=== PATIENT | male | born 1965 | race African-American/Black ===

== ENCOUNTER 2016-11-11 22:40 | Emergency (ER) | payer MEDICAID ==
[~2016-11-11] VITALS: Ht 182.9 cm; Wt 127.0 kg
[~2016-11-11 22:40] MED LIST: ARIP10TA14 PO; ASPI-785 PO; ATEN-176 PO; BENA40TA3 PO; CLON2TAB PO; HYDR-519 PO; METF-246 PO; OMEP20CA10 PO
[2016-11-11] MEDS ORDERED: ASPIRIN 81MG TABLET PO STA (23:46)
[2016-11-11] MEDS ORDERED: MORPHINE SULFATE 4 MG/ML CPJ (NOT FOR IM USE) IV STA (23:46)
[2016-11-12 00:07] LABS: BASOPHILS % 1.2 % (0.0-2.0); EOSINOPHILS % 6.8 % (0.0-5.0); HEMATOCRIT. 39.1 % (42.0-52.0); LYMPHOCYTES % 41.7 % (20.0-50.0); MEAN CORPUSCULAR HEMOGLOBIN 27.7 pg (28.0-32.0); MEAN CORPUSCULAR HGB CONC 33.2 g/dL (31.0-37.0); MEAN CORPUSCULAR VOLUME 83.3 fL (80.0-94.0); MEAN PLATELET VOLUME 7.6 fl (7.4-10.4); MONOCYTES % 8.9 % (2.0-8.0); NEUTROPHILS % 41.4 % (40.0-76.0); PLATELET 348 x1000/uL (130-400); RED CELL DISTRIBUTION WIDTH 15.4 % (11.6-14.6); WHITE BLOOD COUNT 6.2 x1000/uL (4.5-11.0)
[2016-11-12 00:15] LABS: PARTIAL THROMBOPLASTIN TIME 25.1 sec (24.0-34.0); PROTHROMBIN TIME 10.3 sec
[2016-11-12 00:30] LABS: ALANINE AMINOTRANSFERASE 41 IU/L (13-61); ALBUMIN 3.1 g/dL (3.4-5.0); ANION GAP 15; CALCIUM 8.3 mg/dL (8.5-10.1); CARBON DIOXIDE 23 mEq/L (21-32); CHLORIDE 105 mEq/L (98-107); INDEX HEMOLYSI 1 (1-3); INDEX ICTERIC 1 (1-4); INDEX LIPEMIC 1 (1-3); LIPASE 127 IU/L (73-393); NT PRO B-TYPE NATRIURETIC PEP 1195 pg/mL (5-125); TROPONIN I 0.07 ng/mL (0.00-0.04); UREA NITROGEN BLOOD 5 mg/dL (7-21); eGFR > 60 mL/min (>60)
[2016-11-12 06:26] VITALS: BP 152/88
== END 2016-11-12 06:56 | disposition home or self-care (01) ==
LOC: ER 22:41
DX: R07.89 Other chest pain (principal); F10.129 Alcohol abuse with intoxication, unspecified; F14.10 Cocaine abuse, uncomplicated; I11.9 Hypertensive heart disease without heart failure; E11.65 Type 2 diabetes mellitus with hyperglycemia; R06.02 Shortness of breath; R06.82 Tachypnea, not elsewhere classified; R20.2 Paresthesia of skin; R60.0 Localized edema; I25.2 Old myocardial infarction; E78.00 Pure hypercholesterolemia, unspecified; Z89.411 Acquired absence of right great toe; Z89.421 Acquired absence of other right toe(s); Y90.9 Presence of alcohol in blood, level not specified; Z79.82 Long term (current) use of aspirin; Z79.899 Other long term (current) drug therapy; Z88.1 Allergy status to other antibiotic agents; Z88.8 Allergy status to other drugs, medicaments and biological substances
CPT/HCPCS: 36415; 71010; 80053; 83690; 83880; 84484; 85025; 85610; 85730; 96374; 99285; J2270; Z7610

== ENCOUNTER 2017-03-02 14:40 | Inpatient (IN) | payer MEDICAID, OTHER ==
[~2017-03-02] VITALS: Ht 188 cm; Wt 130.2 kg
[~2017-03-02 14:40] MED LIST changes: -ARIP10TA14 PO; +ASPI-1158 PO; -ASPI-785 PO; -ATEN-176 PO; +ATOR40TA70 PO; -BENA40TA3 PO; +CARV25TA47 PO; +CLON0.2T PO; -CLON2TAB PO; +FURO40TA5 PO; -HYDR-519 PO; +HYDR100T31 PO; -METF-246 PO; +METF10002 PO; +MINO2.5T19 PO; -OMEP20CA10 PO; +POTA20TA82 PO
[2017-03-02 15:17] LABS: BG CARBOXYHEMOGLOBIN 0.8 % (0.5-1.5); BG DEOXYHEMOGLOBIN 5.5 % (0.0-5.0); BG HCO3 ACT 21.8 mmol/L (22.0-26.0); BG METHEMOGLOBIN 0.4 % (0.0-1.5); BG OXYGEN SATURATION 94.4 % (92.0-98.5); BG OXYHEMOGLOBIN 93.3 % (94.0-97.0); BG PCO2 29.9 mmHg (35.0-45.0); BG PO2 73.2 mmHg (75.0-100.0); BG SAMPLE SITE RIGHT RADIAL; BG TOTAL HEMOGLOBIN 10.9 g/dL (12.0-18.0); BG VENT MODE ROOM AIR
[2017-03-02 15:22] LABS: HEMATOCRIT. 28.9 % (42.0-52.0); HEMOGLOBIN. 9.6 g/dL (14.0-18.0); MEAN CORPUSCULAR HEMOGLOBIN 26.2 pg (28.0-32.0); MEAN CORPUSCULAR VOLUME 78.6 fL (80.0-94.0); MEAN PLATELET VOLUME 7.4 fl (7.4-10.4); PLATELET 448 x1000/uL (130-400); RED BLOOD CELL COUNT 3.67 mill/uL (4.7-6.1); RED CELL DISTRIBUTION WIDTH 15.2 % (11.6-14.6)
[2017-03-02 15:28] LABS: CHLORIDE 96 mEq/L (98-107)
[2017-03-02 15:31] LABS: CARBON DIOXIDE 24 mEq/L (21-32); INR 1.3
[2017-03-02 15:32] LABS: ETHANOL BLOOD < 10 mg/dL
[2017-03-02 15:38] LABS: TROPONIN I 0.11 ng/mL (0.00-0.04)
[2017-03-02] MEDS ORDERED: HYDROCODONE/ACETAMINOPHEN 5/325MG TABLET PO ONE (16:00)
[2017-03-02] MEDS ORDERED: ASPIRIN 81MG TABLET PO ONE (16:00)
[2017-03-02] MEDS ORDERED: ALBUTEROL (0.5%) 2.5MG/0.5ML NEB HHN ONE (16:00)
[2017-03-02] MEDS ORDERED: FUROSEMIDE 40MG/4ML VIAL IV ONE (16:00)
[2017-03-02 16:41] LABS: PLATELET ESTIMATE INCREASED
[2017-03-02] MEDS ORDERED: ONDANSETRON HCL 4MG/2ML VIAL IV PRN (17:00)
[2017-03-02] MEDS ORDERED: ACETAMINOPHEN 325MG TABLET PO PRN (17:00)
[2017-03-02] MEDS ORDERED: DIPHENHYDRAMINE 50MG/ML VIAL IV PRN (17:00)
[2017-03-02] MEDS ORDERED: IPRATROPIUM/ALBUTEROL 0.5-3(2.5)MG/3ML NEB INH PRN (17:00)
[2017-03-02] MEDS ORDERED: POTASSIUM CHLORIDE INJ 40 MEQ in DEXT 5% WATER 250 ML IV NR (18:00)
[2017-03-02] MEDS ORDERED: TRAMADOL 50MG TABLET PO PRN (20:45)
[2017-03-02] MEDS ORDERED: INSU100I24 SQ (21:01)
[2017-03-02] MEDS ORDERED: MULT-1146 PO (21:01)
[2017-03-02] MEDS ORDERED: P20 PO (21:01)
[2017-03-02] MEDS ORDERED: TRAM50TA3 PO (21:01)
[2017-03-02] MEDS: HYDROCODONE/ACETAMINOPHEN 5/325MG TABLET PO PRN (21:08)
[2017-03-02] MEDS ORDERED: DEXTROSE 50% WATER 50ML SYRINGE IV PRN (21:15)
[2017-03-02] MEDS: HYDRALAZINE HCL 100MG TABLET PO SCH (21:39)
[2017-03-02] MEDS: INSULIN DETEMIR UD 100 UNITS/ML SYR SUBCUT SCH (21:46)
[2017-03-03] MEDS: IPRATROPIUM/ALBUTEROL 0.5-3(2.5)MG/3ML NEB HHN SCH ×6 (00:45→21:13)
[2017-03-03] MEDS: HYDRALAZINE HCL 100MG TABLET PO SCH ×3 (05:24→20:05)
[2017-03-03] MEDS: BLOOD SUGAR DIAGNOSTIC STRIP TEST SCH ×4 (06:19→21:09)
[2017-03-03 06:58] LABS: BASOPHILS % 0.6 % (0.0-2.0); EOSINOPHILS % 4.9 % (0.0-5.0); HEMATOCRIT. 27.1 % (42.0-52.0); HEMOGLOBIN. 9.1 g/dL (14.0-18.0); LYMPHOCYTES % 12.3 % (20.0-50.0); MEAN CORPUSCULAR HEMOGLOBIN 26.9 pg (28.0-32.0); MEAN CORPUSCULAR VOLUME 79.9 fL (80.0-94.0); MEAN PLATELET VOLUME 7.7 fl (7.4-10.4); MONOCYTES % 14.8 % (2.0-8.0); NEUTROPHILS % 67.4 % (40.0-76.0); PLATELET 433 x1000/uL (130-400); RED BLOOD CELL COUNT 3.39 mill/uL (4.7-6.1); RED CELL DISTRIBUTION WIDTH 15.2 % (11.6-14.6)
[2017-03-03 07:00] LABS: CARBON DIOXIDE 25 mEq/L (21-32); CHLORIDE 96 mEq/L (98-107); HDL CHOLESTEROL 39 mg/dL (40-59); LDL CHOLESTEROL 44 mg/dL (5-100)
[2017-03-03] MEDS: INSULIN LISPRO 100 UNITS/ML SUBCUT SCH ×4 (08:10→22:08)
[2017-03-03] MEDS: MINOXIDIL 2.5MG TABLET PO SCH ×2 (08:22→18:20)
[2017-03-03] MEDS: ASPIRIN 81MG EC TABLET PO SCH (08:23)
[2017-03-03] MEDS: MULTIVITAMINS,THER W-MINERALS TABLET PO SCH (08:23)
[2017-03-03] MEDS: POTASSIUM CHLORIDE 20MEQ TABLET SR PO SCH (08:23)
[2017-03-03] MEDS: PREDNISONE 20MG TABLET PO SCH (08:23)
[2017-03-03] MEDS: METFORMIN HCL 500MG TABLET PO SCH ×2 (08:24→18:26)
[2017-03-03] MEDS: CARVEDILOL 25MG TABLET PO SCH ×2 (08:36→21:05)
[2017-03-03] MEDS: CLONIDINE 0.1MG TABLET PO PRN ×3 (08:36→18:24)
[2017-03-03] MEDS: HYDROCODONE/ACETAMINOPHEN 5/325MG TABLET PO PRN ×3 (08:38→20:04)
[2017-03-03] MEDS: ENOXAPARIN 40MG/0.4ML SYR SUBCUT SCH ×2 (08:44→21:06)
[2017-03-03] MEDS ORDERED: MEDICATION NOT ON FORMULARY EA (Multivitamin (Multi Vitamin Daily) 1 TAB) PO SCH (09:00)
[2017-03-03] MEDS ORDERED: FUROSEMIDE 40MG TABLET PO SCH (09:00)
[2017-03-03] MEDS: CLONIDINE 0.2MG TABLET PO SCH ×3 (09:01→17:00)
[2017-03-03] MEDS ORDERED: POTASSIUM CHLORIDE 20MEQ TABLET SR PO SCH (11:45)
[2017-03-03] MEDS ORDERED: SODIUM CHLORIDE 10% FOR INH 15ML VIAL NEB INH SCH (15:00)
[2017-03-03] MEDS ORDERED: LEVOFLOXACIN 500MG PREMIX 100 ML IV SCH (15:00)
[2017-03-03] MEDS: FUROSEMIDE 40MG/4ML VIAL IVP SCH (16:56)
[2017-03-03] MEDS ORDERED: ATORVASTATIN CALCIUM 40MG TABLET PO SCH (21:00)
[2017-03-03] MEDS: INSULIN DETEMIR UD 100 UNITS/ML SYR SUBCUT SCH (21:51)
[2017-03-04] MEDS: HYDROCODONE/ACETAMINOPHEN 5/325MG TABLET PO PRN ×2 (00:44→09:43)
[2017-03-04] MEDS: IPRATROPIUM/ALBUTEROL 0.5-3(2.5)MG/3ML NEB HHN SCH ×4 (01:07→12:26)
[2017-03-04] MEDS: HYDRALAZINE HCL 100MG TABLET PO SCH ×2 (04:52→13:28)
[2017-03-04] MEDS: BLOOD SUGAR DIAGNOSTIC STRIP TEST SCH ×2 (06:03→13:17)
[2017-03-04 06:42] LABS: BASOPHILS % 0.8 % (0.0-2.0); EOSINOPHILS % 3.2 % (0.0-5.0); HEMOGLOBIN. 8.9 g/dL (14.0-18.0); MEAN CORPUSCULAR VOLUME 79.2 fL (80.0-94.0); MEAN PLATELET VOLUME 7.6 fl (7.4-10.4); MONOCYTES % 13.1 % (2.0-8.0); NEUTROPHILS % 67.9 % (40.0-76.0); PLATELET 489 x1000/uL (130-400); RED CELL DISTRIBUTION WIDTH 15.3 % (11.6-14.6)
[2017-03-04 06:45] LABS: CARBON DIOXIDE 27 mEq/L (21-32); CHLORIDE 99 mEq/L (98-107)
[2017-03-04] MEDS: METFORMIN HCL 500MG TABLET PO SCH (09:05)
[2017-03-04] MEDS: INSULIN LISPRO 100 UNITS/ML SUBCUT SCH ×2 (09:06→13:30)
[2017-03-04] MEDS: FUROSEMIDE 40MG/4ML VIAL IVP SCH (09:07)
[2017-03-04] MEDS: ENOXAPARIN 40MG/0.4ML SYR SUBCUT SCH (09:08)
[2017-03-04] MEDS: POTASSIUM CHLORIDE 20MEQ TABLET SR PO SCH (09:08)
[2017-03-04] MEDS: ASPIRIN 81MG EC TABLET PO SCH (09:08)
[2017-03-04] MEDS: CLONIDINE 0.2MG TABLET PO SCH ×2 (09:08→13:28)
[2017-03-04] MEDS: MULTIVITAMINS,THER W-MINERALS TABLET PO SCH (09:08)
[2017-03-04] MEDS: MINOXIDIL 2.5MG TABLET PO SCH (09:09)
[2017-03-04] MEDS: PREDNISONE 20MG TABLET PO SCH (09:10)
[2017-03-04] MEDS: CARVEDILOL 25MG TABLET PO SCH (09:11)
[2017-03-04 14:36] VITALS: BP 132/86
[2017-09-14] MEDS ORDERED: QUET400T PO (16:35)
== END 2017-03-04 15:40 | disposition home or self-care (01) | DRG 194 ==
LOC: ER 14:49 → ENRESERV 19:40 → 7WST 20:23
PROVIDERS: ADMIT Internal Medicine; ATTEND Internal Medicine
DX: I11.0 Hypertensive heart disease with heart failure (principal); E43 Unspecified severe protein-calorie malnutrition; J44.1 Chronic obstructive pulmonary disease with (acute) exacerbation; I50.9 Heart failure, unspecified; E78.5 Hyperlipidemia, unspecified; E87.6 Hypokalemia; E11.9 Type 2 diabetes mellitus without complications; F10.10 Alcohol abuse, uncomplicated; Z79.82 Long term (current) use of aspirin; Z82.49 Family history of ischemic heart disease and other diseases of the circulatory system; Z86.73 Personal history of transient ischemic attack (TIA), and cerebral infarction without residual deficits; Z83.3 Family history of diabetes mellitus
CPT/HCPCS: 36415; 36600; 71010; 80048; 80053; 80061; 82375; 82805; 82962; 83880; 84484; 85025; 85610; 87040; 87070; 87493; 93005; 94640; 94664; 96365; 96366; 96375; 99291; G0482; J1650; J1815; J1940; J1956; J3480; J7040; J7060; J7131; J7512; J7611; J7620

== ENCOUNTER 2018-10-17 20:58 | Inpatient (IN) | payer MEDICAID ==
[~2018-10-17] VITALS: Ht 188 cm; Wt 114.8 kg
[~2018-10-17 20:58] MED LIST changes: -ASPI-1158 PO; +INSU100I24 SQ; +METF-416 PO; -METF10002 PO; +MULT-1146 PO; +P20 PO; +QUET400T PO; +TRAM50TA3 PO
[2018-10-17] MEDS ORDERED: METHYLPREDNISOLONE 4MG TABLET PO ONE (21:30)
[2018-10-17 22:05] LABS: EOSINOPHILS % 7.5 % (0.0-5.0); HEMATOCRIT. 35.9 % (42.0-52.0); HEMOGLOBIN. 11.9 g/dL (14.0-18.0); MEAN CORPUSCULAR HEMOGLOBIN 28.4 pg (28.0-32.0); MEAN PLATELET VOLUME 8.3 fl (7.4-10.4); MONOCYTES % 9.6 % (2.0-8.0); NEUTROPHILS % 64.9 % (40.0-76.0); PLATELET 322 x1000/uL (130-400); RED BLOOD CELL COUNT 4.18 mill/uL (4.7-6.1); RED CELL DISTRIBUTION WIDTH 13.5 % (11.6-14.6)
[2018-10-17 22:11] LABS: CHLORIDE 105 mEq/L (98-107)
[2018-10-17] MEDS ORDERED: HYDRALAZINE 20MG/ML VIAL IV ONE (22:15)
[2018-10-17] MEDS ORDERED: AMLODIPINE 10MG TABLET PO ONE (22:15)
[2018-10-17 23:07] LABS: BG BASE EXCESS 0.8 mmol/L (-2.0-2.0); BG BILEVEL POS AIRWAY PRESSURE 15/5; BG CARBOXYHEMOGLOBIN 0.6 % (0.5-1.5); BG DEOXYHEMOGLOBIN 2.4 % (0.0-5.0); BG FRACTION INSPIRED OXYGEN 30; BG HCO3 ACT 26.2 mmol/L (22.0-26.0); BG METHEMOGLOBIN 0.1 % (0.0-1.5); BG OXYGEN SATURATION 97.6 % (92.0-98.5); BG OXYHEMOGLOBIN 96.9 % (94.0-97.0); BG PCO2 44.6 mmHg (35.0-45.0); BG PH 7.386 (7.350-7.450); BG PO2 108.4 mmHg (75.0-100.0); BG SAMPLE SITE RIGHT RADIAL; BG TOTAL HEMOGLOBIN 12.1 g/dL (12.0-18.0); BG VENT MODE MASK - BIPAP; BG VENT RATE 16 set
[2018-10-17] MEDS ORDERED: KETOROLAC 30MG/ML VIAL IV ONE (23:30)
[2018-10-17] MEDS ORDERED: FUROSEMIDE 40MG/4ML VIAL IVP ONE (23:30)
[2018-10-17] MEDS ORDERED: CLONIDINE 0.2MG TABLET PO ONE (23:30)
[2018-10-18] VITALS (11 sets, daily range): BP systolic 149–195; BP diastolic 72–98
[2018-10-18] MEDS ORDERED: ENOXAPARIN 40MG/0.4ML SYR SUBCUT SCH ×2 (01:00→03:30)
[2018-10-18] MEDS ORDERED: ACETAMINOPHEN 325MG TABLET PO PRN (01:00)
[2018-10-18] MEDS ORDERED: DOCUSATE SODIUM 100MG CAPSULE PO PRN (01:00)
[2018-10-18] MEDS ORDERED: IPRATROPIUM/ALBUTEROL 0.5-3(2.5)MG/3ML NEB INH PRN (01:00)
[2018-10-18] MEDS ORDERED: MAGNESIUM/ALUMINUM HYDROXIDE/SIMETHICONE 30ML UDC PO PRN (01:00)
[2018-10-18] MEDS ORDERED: ONDANSETRON HCL 4MG/2ML INJ IV PRN (01:00)
[2018-10-18 01:12] LABS: CLARITY URINE CLEAR (CLEAR); COLOR URINE YELLOW (YELLOW); KETONES URINE NEGATIVE (NEGATIVE); LEUKOCYTE ESTERASE URINE NEGATIVE (NEGATIVE); NITRITE URINE NEGATIVE (NEGATIVE); OCCULT BLOOD URINE NEGATIVE (NEGATIVE); PROTEIN URINE 1+ (NEGATIVE); SPECIFIC GRAVITY URINE 1.023 (1.005-1.030); UROBILINOGEN URINE 0.2 E.U./dL (0.2-1.0)
[2018-10-18 01:18] LABS: *AMPHETAMINES SCREEN URINE NEGATIVE (NEGATIVE); *BARBITURATES SCREEN URINE NEGATIVE (NEGATIVE); *BENZODIAZEPINES SCREEN URINE NEGATIVE (NEGATIVE); *COCAINE SCREEN URINE NEGATIVE (NEGATIVE); CANNABINOID URINE SCREEN NEGATIVE (NEGATIVE); METHADONE URINE SCREEN NEGATIVE (NEGATIVE); OPIATES URINE SCREEN NEGATIVE (NEGATIVE); PHENCYCLIDINE URINE SCREEN NEGATIVE (NEGATIVE)
[2018-10-18 01:52] LABS: CHLORIDE 105 mEq/L (98-107)
[2018-10-18] MEDS: IPRATROPIUM/ALBUTEROL 0.5-3(2.5)MG/3ML NEB INH SCH ×4 (04:10→17:50)
[2018-10-18] MEDS ORDERED: DEXTROSE 50% WATER 50ML SYRINGE IV PRN (05:30)
[2018-10-18] MEDS: METHYLPREDNISOLONE SOD SUCC 40 MG/ML VIAL IV SCH ×3 (06:00→21:13)
[2018-10-18] MEDS: BLOOD SUGAR DIAGNOSTIC STRIP TEST SCH ×4 (06:22→20:38)
[2018-10-18] MEDS: CLONIDINE 0.1MG TABLET PO PRN ×3 (06:32→22:38)
[2018-10-18] MEDS: OMEPRAZOLE 20MG CAPSULE EXTENDED RELEASE PO SCH (06:32)
[2018-10-18 06:53] LABS: BASOPHILS % 0.9 % (0.0-2.0); EOSINOPHILS % 1.5 % (0.0-5.0); HEMATOCRIT. 35.1 % (42.0-52.0); HEMOGLOBIN. 11.6 g/dL (14.0-18.0); LYMPHOCYTES % 12.4 % (20.0-50.0); MEAN CORPUSCULAR HEMOGLOBIN 28.5 pg (28.0-32.0); MEAN CORPUSCULAR VOLUME 85.9 fL (80.0-94.0); MEAN PLATELET VOLUME 8.5 fl (7.4-10.4); MONOCYTES % 8.5 % (2.0-8.0); NEUTROPHILS % 76.7 % (40.0-76.0); PLATELET 308 x1000/uL (130-400); RED BLOOD CELL COUNT 4.09 mill/uL (4.7-6.1); RED CELL DISTRIBUTION WIDTH 13.3 % (11.6-14.6)
[2018-10-18] MEDS ORDERED: INSULIN LISPRO 100 UNITS/ML SUBCUT SCH (07:20)
[2018-10-18 07:27] LABS: CREATINE KINASE MB FRACTION 2.5 ng/mL (0.5-3.6)
[2018-10-18] MEDS: ENOXAPARIN 30MG/0.3ML SYR SUBCUT SCH ×2 (08:26→20:40)
[2018-10-18] MEDS ORDERED: CLOP75TA33 PO (08:32)
[2018-10-18] MEDS ORDERED: ASPI-1159 PO (08:32)
[2018-10-18] MEDS ORDERED: GLIP5TAB12 PO (08:34)
[2018-10-18] MEDS ORDERED: LISI40TA4 PO (08:35)
[2018-10-18] MEDS ORDERED: METO-539 PO (08:36)
[2018-10-18] MEDS ORDERED: GABA300S PO (08:38)
[2018-10-18] MEDS ORDERED: HYDROCODONE/ACETAMINOPHEN 5/325MG TABLET PO PRN ×2 (09:30)
[2018-10-18] MEDS: FUROSEMIDE 40MG/4ML VIAL IVP SCH (09:50)
[2018-10-18] MEDS: BUDESONIDE 0.5MG/2ML NEB HHN SCH (09:57)
[2018-10-18] MEDS: HYDRALAZINE 20MG/ML VIAL IV PRN ×2 (10:35→17:20)
[2018-10-18] MEDS: AMLODIPINE 5MG TABLET PO SCH ×2 (10:36→20:38)
[2018-10-18] MEDS ORDERED: MAGNESIUM 2 G PREMIX 50 ML IV NR (11:00)
[2018-10-18] MEDS: INSULIN GLARGINE UD 100 UNITS/ML SYR SUBCUT SCH ×2 (11:32→21:15)
[2018-10-18] MEDS: INSULIN LISPRO 100 UNITS/ML SUBCUT SCH ×3 (11:36→20:37)
[2018-10-18] MEDS: NICOTINE 14MG PATCH TD SCH (14:30)
[2018-10-18] MEDS: HYDROCODONE/ACETAMINOPHEN 10/325MG TABLET PO PRN ×2 (14:34→20:40)
[2018-10-18] MEDS: LOSARTAN POTASSIUM 100 MG TABLET PO SCH (15:21)
[2018-10-18 15:54] LABS: CREATINE KINASE MB FRACTION 2.6 ng/mL (0.5-3.6)
[2018-10-18] MEDS: METOPROLOL TARTRATE 50MG TABLET PO SCH (20:38)
[2018-10-18] MEDS ORDERED: AMLODIPINE 5MG TABLET PO SCH (21:00)
[2018-10-18] MEDS: HYDRALAZINE HCL 50MG TABLET PO SCH (21:13)
[2018-10-19] VITALS (12 sets, daily range): BP systolic 150–194; BP diastolic 72–98
[2018-10-19] MEDS: HYDRALAZINE 20MG/ML VIAL IV PRN (00:31)
[2018-10-19] MEDS ORDERED: CLONIDINE 0.1MG TABLET PO PRN (01:00)
[2018-10-19] MEDS: IPRATROPIUM/ALBUTEROL 0.5-3(2.5)MG/3ML NEB INH SCH ×6 (01:18→21:08)
[2018-10-19 05:57] LABS: BASOPHILS % 0.2 % (0.0-2.0); HEMATOCRIT. 38.1 % (42.0-52.0); HEMOGLOBIN. 12.4 g/dL (14.0-18.0); LYMPHOCYTES % 10.2 % (20.0-50.0); MEAN CORPUSCULAR HEMOGLOBIN 27.8 pg (28.0-32.0); MEAN CORPUSCULAR VOLUME 85.6 fL (80.0-94.0); MEAN PLATELET VOLUME 8.3 fl (7.4-10.4); MONOCYTES % 4.9 % (2.0-8.0); NEUTROPHILS % 84.7 % (40.0-76.0); PLATELET 364 x1000/uL (130-400); RED BLOOD CELL COUNT 4.45 mill/uL (4.7-6.1); RED CELL DISTRIBUTION WIDTH 13.3 % (11.6-14.6)
[2018-10-19] MEDS: OMEPRAZOLE 20MG CAPSULE EXTENDED RELEASE PO SCH (06:04)
[2018-10-19] MEDS: METHYLPREDNISOLONE SOD SUCC 40 MG/ML VIAL IV SCH (06:04)
[2018-10-19 06:05] LABS: CHLORIDE 99 mEq/L (98-107)
[2018-10-19] MEDS: HYDRALAZINE HCL 50MG TABLET PO SCH (06:05)
[2018-10-19] MEDS: HYDROCODONE/ACETAMINOPHEN 10/325MG TABLET PO PRN ×3 (06:15→21:06)
[2018-10-19] MEDS: BLOOD SUGAR DIAGNOSTIC STRIP TEST SCH ×4 (06:15→21:06)
[2018-10-19] MEDS: LOSARTAN POTASSIUM 100 MG TABLET PO SCH (08:32)
[2018-10-19] MEDS: METOPROLOL TARTRATE 50MG TABLET PO SCH ×2 (08:32→21:05)
[2018-10-19] MEDS: FUROSEMIDE 40MG/4ML VIAL IVP SCH (08:33)
[2018-10-19] MEDS: AMLODIPINE 5MG TABLET PO SCH ×2 (08:33→21:05)
[2018-10-19] MEDS: ENOXAPARIN 30MG/0.3ML SYR SUBCUT SCH ×2 (08:34→21:41)
[2018-10-19] MEDS: INSULIN LISPRO 100 UNITS/ML SUBCUT SCH ×4 (08:40→21:43)
[2018-10-19] MEDS: NICOTINE 14MG PATCH TD SCH (08:41)
[2018-10-19] MEDS: INSULIN GLARGINE UD 100 UNITS/ML SYR SUBCUT SCH ×2 (08:41→21:43)
[2018-10-19] MEDS ORDERED: LOSARTAN POTASSIUM 100 MG TABLET PO SCH (09:00)
[2018-10-19] MEDS ORDERED: BUDESONIDE 0.5MG/2ML NEB HHN SCH (12:45)
[2018-10-19] MEDS: BUDESONIDE 0.5MG/2ML NEB HHN SCH ×2 (13:26→21:08)
[2018-10-19] MEDS: HYDRALAZINE HCL 100MG TABLET PO SCH ×2 (13:31→21:44)
[2018-10-19] MEDS ORDERED: CLONIDINE 0.2MG TABLET PO PRN (21:54)
[2018-10-20] VITALS (8 sets, daily range): BP systolic 125–190; BP diastolic 53–98
[2018-10-20] MEDS: IPRATROPIUM/ALBUTEROL 0.5-3(2.5)MG/3ML NEB INH SCH ×4 (00:54→12:21)
[2018-10-20] MEDS: HYDRALAZINE HCL 100MG TABLET PO SCH (05:09)
[2018-10-20] MEDS: HYDROCODONE/ACETAMINOPHEN 10/325MG TABLET PO PRN ×2 (05:11→09:05)
[2018-10-20] MEDS: BLOOD SUGAR DIAGNOSTIC STRIP TEST SCH ×2 (06:19→12:22)
[2018-10-20] MEDS: INSULIN LISPRO 100 UNITS/ML SUBCUT SCH ×2 (07:20→12:41)
[2018-10-20] MEDS: BUDESONIDE 0.5MG/2ML NEB HHN SCH (08:34)
[2018-10-20] MEDS: AMLODIPINE 5MG TABLET PO SCH (08:52)
[2018-10-20] MEDS: METOPROLOL TARTRATE 50MG TABLET PO SCH (08:52)
[2018-10-20] MEDS: NICOTINE 14MG PATCH TD SCH (08:53)
[2018-10-20] MEDS: ENOXAPARIN 30MG/0.3ML SYR SUBCUT SCH (08:53)
[2018-10-20] MEDS: FUROSEMIDE 40MG/4ML VIAL IVP SCH (08:53)
[2018-10-20] MEDS: LOSARTAN POTASSIUM 100 MG TABLET PO SCH (08:54)
[2018-10-20] MEDS ORDERED: FAMOTIDINE 20MG TABLET PO SCH (09:00)
[2018-10-20] MEDS ORDERED: PREDNISONE 20MG TABLET PO SCH (09:00)
[2018-10-20] MEDS ORDERED: METO-539 PO (10:02)
[2018-10-20] MEDS ORDERED: LOSA100T3 PO (10:02)
[2018-10-20] MEDS ORDERED: AMLO5TAB88 PO (10:02)
[2018-10-20] MEDS ORDERED: MED4 MT (10:02)
[2018-10-20] MEDS ORDERED: ALBU18HF2 IH (10:04)
[2018-10-20] MEDS ORDERED: FLUT1DIS3 INH (10:04)
[2018-10-20] MEDS: INSULIN GLARGINE UD 100 UNITS/ML SYR SUBCUT SCH (12:42)
== END 2018-10-20 13:34 | disposition home or self-care (01) | DRG 133 ==
LOC: ER 20:58 → 3WST 21:44 → EDBEDREQ 21:46 → EDBEDREQTM 21:46 → ENRESERV 10-18 01:42
PROVIDERS: ADMIT Internal Medicine; ATTEND Internal Medicine
PROC: 5A09357 Assistance with Respiratory Ventilation, Less than 24 Consecutive Hours, Continuous Positive Airway Pressure (ICD-10-PCS; principal; 2018-10-17)
PROC: 5A09357 Assistance with Respiratory Ventilation, Less than 24 Consecutive Hours, Continuous Positive Airway Pressure (ICD-10-PCS; 2018-10-18)
DX: J96.00 Acute respiratory failure, unspecified whether with hypoxia or hypercapnia (principal); I50.33 Acute on chronic diastolic (congestive) heart failure; E11.51 Type 2 diabetes mellitus with diabetic peripheral angiopathy without gangrene; E66.01 Morbid (severe) obesity due to excess calories; K72.90 Hepatic failure, unspecified without coma; I11.0 Hypertensive heart disease with heart failure; J44.1 Chronic obstructive pulmonary disease with (acute) exacerbation; E83.42 Hypomagnesemia; R59.1 Generalized enlarged lymph nodes; I16.0 Hypertensive urgency; F12.90 Cannabis use, unspecified, uncomplicated; D64.9 Anemia, unspecified; F17.210 Nicotine dependence, cigarettes, uncomplicated; I25.10 Atherosclerotic heart disease of native coronary artery without angina pectoris; I25.2 Old myocardial infarction; Z59.0 Homelessness; Z86.73 Personal history of transient ischemic attack (TIA), and cerebral infarction without residual deficits; Z68.32 Body mass index [BMI] 32.0-32.9, adult; Z89.421 Acquired absence of other right toe(s); Z79.899 Other long term (current) drug therapy
CPT/HCPCS: 36415; 36600; 71045; 80048; 80061; 80305; 82140; 82375; 82550; 82553; 82805; 82962; 83615; 83735; 83880; 84484; 86703; 93005; 93306; 93970; 94640; 94660; 96374; 96375; 99285; J0360; J1650; J1815; J1885; J1940; J2920; J3475; J7050; J7509; J7512; J7620; J7626

== ENCOUNTER 2019-01-20 17:46 | Emergency (ER) | payer MEDICAID ==
[~2019-01-20] VITALS: Ht 188 cm; Wt 130.0 kg
[~2019-01-20 17:46] MED LIST changes: +ALBU18HF2 IH; +AMLO5TAB88 PO; +ASPI-1393 PO; -CARV25TA47 PO; -CLON0.2T PO; +CLOP75TA33 PO; +FLUT1DIS3 INH; +GABA300S PO; +LOSA100T3 PO; +MED4 MT; +METO-539 PO; -MINO2.5T19 PO; -P20 PO
[2019-01-20] MEDS: IBUPROFEN 800MG TABLET PO ONE (18:30)
[2019-01-20] MEDS: HYDROCODONE/ACETAMINOPHEN 5/325MG TABLET PO ONE (18:30)
[2019-01-20 20:58] VITALS: BP 178/74
[2019-01-22] MEDS ORDERED: DIPH25CA6 PO (00:33)
[2019-01-22] MEDS ORDERED: EPIN0.3P3 IM (00:33)
[2019-01-22] MEDS ORDERED: SPIR50TA5 PO (00:33)
[2019-01-22] MEDS ORDERED: CLON0.3T PO (00:33)
[2019-01-22] MEDS ORDERED: FAMO20TA8 PO (00:33)
[2019-01-22] MEDS ORDERED: COR25 PO (00:33)
== END 2019-01-20 20:59 | disposition home or self-care (01) ==
LOC: ER 17:46
DX: S00.03XA Contusion of scalp, initial encounter (principal); G89.29 Other chronic pain; M79.604 Pain in right leg; I11.9 Hypertensive heart disease without heart failure; E11.9 Type 2 diabetes mellitus without complications; Z79.899 Other long term (current) drug therapy; Z79.82 Long term (current) use of aspirin; X58.XXXA Exposure to other specified factors, initial encounter; Y93.89 Activity, other specified; Y92.89 Other specified places as the place of occurrence of the external cause; Y99.8 Other external cause status
CPT/HCPCS: 99284

== ENCOUNTER 2019-06-23 18:48 | Inpatient (IN) | payer MEDICAID ==
[~2019-06-23] VITALS: Ht 172.7 cm; Wt 108.4 kg
[~2019-06-23 18:48] MED LIST changes: +B25 PO; +CLON0.3T PO; +COR25 PO; +EPIN0.3P3 IM; +FAMO20TA8 PO; +SPIR50TA5 PO
[2019-06-23] MEDS ORDERED: KETOROLAC 30MG/ML VIAL IV STA (19:01)
[2019-06-23] MEDS ORDERED: ASPIRIN 81MG TABLET PO ONE (19:15)
[2019-06-23 19:25] LABS: BASOPHILS % 1.3 % (0.0-2.0); EOSINOPHILS % 5.3 % (0.0-5.0); HEMATOCRIT. 37.5 % (42.0-52.0); HEMOGLOBIN. 12.4 g/dL (14.0-18.0); LYMPHOCYTES % 28.6 % (20.0-50.0); MEAN CORPUSCULAR HEMOGLOBIN 27.8 pg (28.0-32.0); MEAN PLATELET VOLUME 7.7 fl (7.4-10.4); MONOCYTES % 8.1 % (2.0-8.0); NEUTROPHILS % 56.7 % (40.0-76.0); PLATELET 385 x1000/uL (130-400); RED BLOOD CELL COUNT 4.46 mill/uL (4.7-6.1); RED CELL DISTRIBUTION WIDTH 16.3 % (11.6-14.6)
[2019-06-23] MEDS ORDERED: DILTIAZEM HCL 5MG/ML 5ML VIAL IV ONE (19:30)
[2019-06-23 19:41] LABS: CHLORIDE 104 mEq/L (98-107)
[2019-06-23] MEDS ORDERED: DILTIAZEM HCL 125 MG in DEXT 5% WATER 100 ML IV ONE (20:00)
[2019-06-23] MEDS ORDERED: DILTIAZEM HCL 125 MG in DEXT 5% WATER 100 ML IV SCH (21:00)
[2019-06-23 21:36] LABS: *BARBITURATES SCREEN URINE NEGATIVE (NEGATIVE); *BENZODIAZEPINES SCREEN URINE NEGATIVE (NEGATIVE); CANNABINOID URINE SCREEN NEGATIVE (NEGATIVE)
[2019-06-23 21:37] LABS: *COCAINE SCREEN URINE PRESUMTIVE POSITIVE (NEGATIVE); METHADONE URINE SCREEN NEGATIVE (NEGATIVE); OPIATES URINE SCREEN NEGATIVE (NEGATIVE); PHENCYCLIDINE URINE SCREEN NEGATIVE (NEGATIVE)
[2019-06-23 21:38] LABS: *AMPHETAMINES SCREEN URINE NEGATIVE (NEGATIVE)
[2019-06-23 22:00] VITALS: BP_SYST 103; BP_SYST 97; BP_DIAS 59; BP_DIAS 64
[2019-06-23 22:30] VITALS: BP 113/64
[2019-06-23 23:00] VITALS: BP 108/66
[2019-06-23 23:30] VITALS: BP 109/69
[2019-06-24] VITALS (32 sets, daily range): BP systolic 112–181; BP diastolic 65–109
[2019-06-24] MEDS ORDERED: DIPHENHYDRAMINE 50MG/ML VIAL IV PRN (02:00)
[2019-06-24] MEDS ORDERED: ALBUTEROL (0.083%) 2.5MG/3ML NEB HHN PRN (02:00)
[2019-06-24] MEDS ORDERED: GABAPENTIN 300MG CAPSULE PO SCH (06:00)
[2019-06-24] MEDS: HYDRALAZINE HCL 100MG TABLET PO SCH ×3 (06:14→20:45)
[2019-06-24 06:29] LABS: EOSINOPHILS % 9.3 % (0.0-5.0); HEMATOCRIT. 36.5 % (42.0-52.0); LYMPHOCYTES % 31.1 % (20.0-50.0); MEAN CORPUSCULAR HEMOGLOBIN 27.8 pg (28.0-32.0); MEAN CORPUSCULAR VOLUME 84.6 fL (80.0-94.0); MEAN PLATELET VOLUME 7.9 fl (7.4-10.4); MONOCYTES % 11.9 % (2.0-8.0); NEUTROPHILS % 45.7 % (40.0-76.0); PLATELET 373 x1000/uL (130-400); RED BLOOD CELL COUNT 4.32 mill/uL (4.7-6.1); RED CELL DISTRIBUTION WIDTH 16.2 % (11.6-14.6)
[2019-06-24 06:40] LABS: CHLORIDE 109 mEq/L (98-107)
[2019-06-24] MEDS: CLOPIDOGREL 75MG TABLET PO SCH (08:13)
[2019-06-24] MEDS: TRAMADOL 50MG TABLET PO PRN ×3 (08:13→20:52)
[2019-06-24] MEDS: FAMOTIDINE 20MG TABLET PO SCH ×2 (08:13→20:44)
[2019-06-24] MEDS: AMLODIPINE 5MG TABLET PO SCH ×2 (08:13→20:44)
[2019-06-24] MEDS: MULTIVITAMINS,THER W-MINERALS TABLET PO SCH (08:13)
[2019-06-24] MEDS: ASPIRIN 81MG TABLET PO SCH (08:14)
[2019-06-24] MEDS: CLONIDINE 0.3MG TABLET PO SCH ×2 (08:14→17:29)
[2019-06-24] MEDS ORDERED: METFORMIN HCL 500MG TABLET PO SCH (08:20)
[2019-06-24] MEDS ORDERED: DILTIAZEM HCL 125 MG in DEXT 5% WATER 100 ML IV PRN (08:30)
[2019-06-24] MEDS ORDERED: SPIRONOLACTONE 50MG TABLET PO SCH (09:00)
[2019-06-24] MEDS ORDERED: CARVEDILOL 12.5MG TABLET PO SCH (09:00)
[2019-06-24] MEDS ORDERED: METOPROLOL TARTRATE 50MG TABLET PO SCH (09:00)
[2019-06-24] MEDS ORDERED: LOSARTAN POTASSIUM 100 MG TABLET PO SCH (09:00)
[2019-06-24] MEDS ORDERED: FUROSEMIDE 40MG TABLET PO SCH (09:00)
[2019-06-24] MEDS ORDERED: POTASSIUM CHLORIDE 20MEQ TABLET SR PO SCH (09:00)
[2019-06-24] MEDS ORDERED: ENOXAPARIN 30MG/0.3ML SYR SUBCUT SCH (11:00)
[2019-06-24] MEDS ORDERED: ENOXAPARIN 60MG/0.6ML SYR SUBCUT NR (11:07)
[2019-06-24] MEDS ORDERED: CLONIDINE 0.1MG TABLET PO SCH (11:15)
[2019-06-24] MEDS: DILTIAZEM HCL 30MG TABLET PO SCH ×2 (12:00→17:28)
[2019-06-24] MEDS: NITROGLYCERIN OINT 1GM/INCH UDPKT TD SCH ×2 (12:12→17:27)
[2019-06-24] MEDS ORDERED: DEXTROSE 50% WATER 50ML SYRINGE IV PRN (12:30)
[2019-06-24] MEDS: BLOOD SUGAR DIAGNOSTIC STRIP TEST SCH ×3 (12:35→20:47)
[2019-06-24] MEDS: INSULIN LISPRO 100 UNITS/ML SUBCUT SCH ×3 (13:08→20:52)
[2019-06-24] MEDS: APIXABAN 5 MG TABLET PO SCH (17:27)
[2019-06-24] MEDS ORDERED: QUETIAPINE FUMARATE 50MG TABLET PO SCH (21:00)
[2019-06-24] MEDS ORDERED: ENOXAPARIN 80MG/0.8ML SYR SUBCUT SCH (21:00)
[2019-06-24] MEDS ORDERED: ATORVASTATIN CALCIUM 40MG TABLET PO SCH (21:00)
[2019-06-25] VITALS (7 sets, daily range): BP systolic 145–162; BP diastolic 74–98
[2019-06-25] MEDS: NITROGLYCERIN OINT 1GM/INCH UDPKT TD SCH ×3 (00:09→11:58)
[2019-06-25] MEDS: TRAMADOL 50MG TABLET PO PRN ×2 (04:52→09:48)
[2019-06-25] MEDS: DILTIAZEM HCL 30MG TABLET PO SCH ×3 (05:02→11:58)
[2019-06-25] MEDS: CLONIDINE 0.3MG TABLET PO SCH (05:03)
[2019-06-25] MEDS: HYDRALAZINE HCL 100MG TABLET PO SCH ×2 (05:03→13:00)
[2019-06-25 07:01] LABS: CHLORIDE 106 mEq/L (98-107)
[2019-06-25 07:08] LABS: BASOPHILS % 1.9 % (0.0-2.0); EOSINOPHILS % 8.5 % (0.0-5.0); HEMATOCRIT. 35.5 % (42.0-52.0); HEMOGLOBIN. 11.6 g/dL (14.0-18.0); LYMPHOCYTES % 20.9 % (20.0-50.0); MEAN CORPUSCULAR HEMOGLOBIN 27.6 pg (28.0-32.0); MEAN CORPUSCULAR VOLUME 84.4 fL (80.0-94.0); MEAN PLATELET VOLUME 8.2 fl (7.4-10.4); MONOCYTES % 12.5 % (2.0-8.0); NEUTROPHILS % 56.2 % (40.0-76.0); PLATELET 338 x1000/uL (130-400); RED BLOOD CELL COUNT 4.21 mill/uL (4.7-6.1); RED CELL DISTRIBUTION WIDTH 16.5 % (11.6-14.6)
[2019-06-25 07:09] LABS: LDL CHOLESTEROL 67 mg/dL (5-100)
[2019-06-25 07:10] LABS: CREATINE KINASE 73 IU/L (39-308)
[2019-06-25 07:11] LABS: HDL CHOLESTEROL 52 mg/dL (40-59)
[2019-06-25] MEDS: BLOOD SUGAR DIAGNOSTIC STRIP TEST SCH ×2 (07:30→11:58)
[2019-06-25] MEDS: INSULIN LISPRO 100 UNITS/ML SUBCUT SCH ×2 (08:45→12:58)
[2019-06-25] MEDS: ASPIRIN 81MG TABLET PO SCH (08:46)
[2019-06-25] MEDS: CLOPIDOGREL 75MG TABLET PO SCH (08:46)
[2019-06-25] MEDS: FAMOTIDINE 20MG TABLET PO SCH (08:46)
[2019-06-25] MEDS: MULTIVITAMINS,THER W-MINERALS TABLET PO SCH (08:46)
[2019-06-25] MEDS: APIXABAN 5 MG TABLET PO SCH (08:46)
[2019-06-25] MEDS: AMLODIPINE 5MG TABLET PO SCH (08:46)
[2019-06-25] MEDS ORDERED: AMLO10TA4 MT (14:20)
[2019-06-25] MEDS ORDERED: DILT30TA38 MT (14:20)
[2019-06-25] MEDS ORDERED: ALBU90AE INH (14:20)
[2019-06-25] MEDS ORDERED: APIX5TAB MT (14:20)
[2019-06-25] MEDS ORDERED: AMLODIPINE 5MG TABLET PO SCH (21:00)
== END 2019-06-25 15:10 | disposition home or self-care (01) | DRG 813 ==
LOC: ER 18:48 → CVICU 19:59 → ENRESERV 20:36 → 5EST 06-24 14:00
PROVIDERS: ADMIT Internal Medicine; ATTEND Internal Medicine
PROC: 0HBMXZZ Excision of Right Foot Skin, External Approach (ICD-10-PCS; principal; 2019-06-24)
DX: T81.31XA Disruption of external operation (surgical) wound, not elsewhere classified, initial encounter (principal); I21.4 Non-ST elevation (NSTEMI) myocardial infarction; I50.33 Acute on chronic diastolic (congestive) heart failure; E44.0 Moderate protein-calorie malnutrition; E11.42 Type 2 diabetes mellitus with diabetic polyneuropathy; E11.51 Type 2 diabetes mellitus with diabetic peripheral angiopathy without gangrene; I48.0 Paroxysmal atrial fibrillation; E66.01 Morbid (severe) obesity due to excess calories; D64.9 Anemia, unspecified; I11.0 Hypertensive heart disease with heart failure; I25.10 Atherosclerotic heart disease of native coronary artery without angina pectoris; F14.10 Cocaine abuse, uncomplicated; R26.9 Unspecified abnormalities of gait and mobility; J68.0 Bronchitis and pneumonitis due to chemicals, gases, fumes and vapors; K21.9 Gastro-esophageal reflux disease without esophagitis; E78.00 Pure hypercholesterolemia, unspecified; E78.5 Hyperlipidemia, unspecified; Y83.8 Other surgical procedures as the cause of abnormal reaction of the patient, or of later complication, without mention of misadventure at the time of the procedure; F10.10 Alcohol abuse, uncomplicated; F17.210 Nicotine dependence, cigarettes, uncomplicated; Z59.0 Homelessness; Z91.19 Patient's noncompliance with other medical treatment and regimen; I25.2 Old myocardial infarction; Z68.36 Body mass index [BMI] 36.0-36.9, adult; Z88.8 Allergy status to other drugs, medicaments and biological substances; Z89.431 Acquired absence of right foot; Z71.6 Tobacco abuse counseling; Z71.41 Alcohol abuse counseling and surveillance of alcoholic; Z71.3 Dietary counseling and surveillance; Z71.51 Drug abuse counseling and surveillance of drug abuser; Y92.89 Other specified places as the place of occurrence of the external cause
CPT/HCPCS: 36415; 71045; 80048; 80061; 80305; 82550; 82553; 82962; 83036; 83735; 83880; 84443; 84484; 85379; 93005; 93306; 93970; 96374; 96375; 99285; J1650; J1815; J1885; J3490; J7060

== ENCOUNTER 2019-08-18 01:52 | Inpatient (IN) | payer MEDICARE ==
[~2019-08-18] VITALS: Ht 188 cm; Wt 116.6 kg
[~2019-08-18 01:52] MED LIST changes: +ALBU90AE INH; +AMLO10TA4 MT; -AMLO5TAB88 PO; +APIX5TAB MT; -COR25 PO; +DILT30TA38 MT; -GABA300S PO; -HYDR100T31 PO; +LEVO500T2 MT; -MED4 MT; -METO-539 PO
[2019-08-18] MEDS ORDERED: ALBUTEROL (0.083%) 2.5MG/3ML NEB ONE (06:44)
[2019-08-18] MEDS ORDERED: IPRATROPIUM BROMIDE (0.02%) 0.5MG/2.5ML NEB ONE (06:44)
[2019-08-18] MEDS ORDERED: ASPIRIN 81MG TABLET PO SCH (07:32)
[2019-08-18] MEDS ORDERED: MORPHINE SULFATE 2 MG/ML CPJ (NOT FOR IM USE) IV SCH (07:32)
[2019-08-18] MEDS ORDERED: NITROGLYCERIN 0.4MG TABLET SL SL SCH (07:32)
[2019-08-18] MEDS ORDERED: FUROSEMIDE 40MG/4ML VIAL IV SCH (07:32)
[2019-08-18] MEDS ORDERED: ASPIRIN 81MG TABLET ONE (07:48)
[2019-08-18] MEDS ORDERED: NITROGLYCERIN 0.4MG TABLET SL SL ONE (07:49)
[2019-08-18] MEDS ORDERED: MORPHINE SULFATE 2 MG/ML CPJ (NOT FOR IM USE) IV ONE (07:50)
[2019-08-18] MEDS ORDERED: FUROSEMIDE 40MG/4ML VIAL ONE (07:50)
[2019-08-18] MEDS ORDERED: ASPIRIN 81MG TABLET PO ONE (08:15)
[2019-08-18] MEDS ORDERED: NITROGLYCERIN 0.4MG TABLET SL SL PRN (08:15)
[2019-08-18] MEDS ORDERED: FUROSEMIDE 40MG/4ML VIAL IV ONE (08:15)
[2019-08-18 09:02] LABS: CLARITY URINE CLEAR (CLEAR); COLOR URINE YELLOW (YELLOW); KETONES URINE NEGATIVE (NEGATIVE); LEUKOCYTE ESTERASE URINE NEGATIVE (NEGATIVE); NITRITE URINE NEGATIVE (NEGATIVE); OCCULT BLOOD URINE NEGATIVE (NEGATIVE); PH URINE 5.5 (4.5-8.0); PROTEIN URINE TRACE (NEGATIVE); UROBILINOGEN URINE 0.2 E.U./dL (0.2-1.0)
[2019-08-18 09:15] LABS: CHLORIDE 108 mEq/L (98-107)
[2019-08-18 09:16] LABS: BASOPHILS % 0.3 % (0.0-2.0); EOSINOPHILS % 8.9 % (0.0-5.0); HEMATOCRIT. 33.4 % (42.0-52.0); LYMPHOCYTES % 14.6 % (20.0-50.0); MEAN PLATELET VOLUME 8.1 fl (7.4-10.4); MONOCYTES % 10.4 % (2.0-8.0); NEUTROPHILS % 65.8 % (40.0-76.0); PLATELET 308 x1000/uL (130-400); RED BLOOD CELL COUNT 3.92 mill/uL (4.7-6.1); RED CELL DISTRIBUTION WIDTH 14.4 % (11.6-14.6)
[2019-08-18] MEDS ORDERED: SODIUM CHLORIDE 0.9% 1000ML BAG (SEPSIS BOLUS) IV ONE (11:00)
[2019-08-18] MEDS ORDERED: CLONIDINE 0.2MG TABLET PO ONE (11:00)
[2019-08-18] MEDS ORDERED: LEVOFLOXACIN 750MG PREMIX 150 ML IV ONE (11:00)
[2019-08-18] MEDS ORDERED: HYDRALAZINE 20MG/ML VIAL IV ONE (12:15)
[2019-08-18 16:06] LABS: BG BASE EXCESS 0.5 mmol/L (-2.0-2.0); BG CARBOXYHEMOGLOBIN 1.5 % (0.5-1.5); BG DEOXYHEMOGLOBIN 8.4 % (0.0-5.0); BG HCO3 ACT 23.5 mmol/L (22.0-26.0); BG METHEMOGLOBIN 0.1 % (0.0-1.5); BG OXYGEN SATURATION 91.5 % (92.0-98.5); BG PCO2 32.4 mmHg (35.0-45.0); BG PH 7.478 (7.350-7.450); BG PO2 57.7 mmHg (75.0-100.0); BG SAMPLE SITE RIGHT RADIAL; BG TOTAL HEMOGLOBIN 12.1 g/dL (12.0-18.0); BG VENT MODE NASAL CANNULA
[2019-08-18] MEDS ORDERED: ACETAMINOPHEN 325MG TABLET PO PRN (16:15)
[2019-08-18] MEDS ORDERED: ONDANSETRON HCL 4MG/2ML INJ IV PRN (16:15)
[2019-08-18] MEDS ORDERED: ACETAMINOPHEN 650MG SUPP PR PRN (16:15)
[2019-08-18] MEDS ORDERED: GUAIFENESIN 200MG/10ML SUGAR FREE UDC PO PRN (16:15)
[2019-08-18] MEDS ORDERED: DOCUSATE SODIUM 100MG CAPSULE PO PRN (16:15)
[2019-08-18] MEDS ORDERED: DEXTROSE 50% WATER 50ML SYRINGE IV PRN (16:15)
[2019-08-18] MEDS ORDERED: DIPHENHYDRAMINE 50MG/ML VIAL IV PRN (16:15)
[2019-08-18] MEDS ORDERED: MAGNESIUM/ALUMINUM HYDROXIDE/SIMETHICONE 30ML UDC PO PRN (16:15)
[2019-08-18] MEDS ORDERED: IPRATROPIUM/ALBUTEROL 0.5-3(2.5)MG/3ML NEB NEB PRN (16:15)
[2019-08-18] MEDS ORDERED: LORAZEPAM 0.5MG TABLET PO PRN (16:15)
[2019-08-18] MEDS: CLONIDINE 0.1MG TABLET PO PRN (16:46)
[2019-08-18 20:00] VITALS: BP_SYST 221; BP_DIAS 114; BP_DIAS 121
[2019-08-18] MEDS ORDERED: HYDRALAZINE 20MG/ML VIAL IV NR (20:13)
[2019-08-18] MEDS ORDERED: NA PHOS,M-B/NA PHOS,DI-BA ENEMA 118ML PR PRN (20:30)
[2019-08-18] MEDS: HYDROCODONE/ACETAMINOPHEN 5/325MG TABLET PO PRN (20:33)
[2019-08-18] MEDS: HYDRALAZINE 20MG/ML VIAL IV PRN (20:34)
[2019-08-18] MEDS ORDERED: ATORVASTATIN CALCIUM 40MG TABLET PO SCH (21:00)
[2019-08-18] MEDS: HYDRALAZINE HCL 50MG TABLET PO SCH (21:19)
[2019-08-18] MEDS: BLOOD SUGAR DIAGNOSTIC STRIP TEST SCH (21:19)
[2019-08-18] MEDS: INSULIN LISPRO 100 UNITS/ML SUBCUT SCH (21:34)
[2019-08-18] MEDS: FAMOTIDINE 20MG/2ML VIAL IV SCH (21:34)
[2019-08-18] MEDS: METHYLPREDNISOLONE SOD SUCC 40 MG/ML VIAL IV SCH (21:35)
[2019-08-18] MEDS ORDERED: HYDRALAZINE HCL 50MG TABLET PO SCH (22:00)
[2019-08-18] MEDS: PIPERACILLIN/TAZOBACTAM 3.375 G in DEXT 5% WATER 100 ML IV SCH (23:03)
[2019-08-18] MEDS: IPRATROPIUM/ALBUTEROL 0.5-3(2.5)MG/3ML NEB NEB SCH (23:41)
[2019-08-19] VITALS: BP 180/84
[2019-08-19] MEDS: MORPHINE SULFATE 2 MG/ML CPJ (NOT FOR IM USE) IV PRN ×2 (00:22→08:07)
[2019-08-19 03:52] LABS: *AMPHETAMINES SCREEN URINE NEGATIVE (NEGATIVE); *BARBITURATES SCREEN URINE NEGATIVE (NEGATIVE); *BENZODIAZEPINES SCREEN URINE NEGATIVE (NEGATIVE)
[2019-08-19 03:53] LABS: *COCAINE SCREEN URINE PRESUMTIVE POSITIVE (NEGATIVE); CANNABINOID URINE SCREEN NEGATIVE (NEGATIVE); METHADONE URINE SCREEN NEGATIVE (NEGATIVE); OPIATES URINE SCREEN PRESUMTIVE POSITIVE (NEGATIVE); PHENCYCLIDINE URINE SCREEN NEGATIVE (NEGATIVE)
[2019-08-19 04:00] VITALS: BP 227/104
[2019-08-19] MEDS: HYDROCODONE/ACETAMINOPHEN 5/325MG TABLET PO PRN (04:34)
[2019-08-19] MEDS: CLONIDINE 0.1MG TABLET PO PRN (04:35)
[2019-08-19] MEDS: HYDRALAZINE 20MG/ML VIAL IV PRN (04:35)
[2019-08-19] MEDS: PIPERACILLIN/TAZOBACTAM 3.375 G in DEXT 5% WATER 100 ML IV SCH ×2 (04:45→09:51)
[2019-08-19] MEDS: IPRATROPIUM/ALBUTEROL 0.5-3(2.5)MG/3ML NEB NEB SCH ×3 (05:02→12:22)
[2019-08-19 06:03] LABS: HEMATOCRIT. 31.9 % (42.0-52.0); HEMOGLOBIN. 10.7 g/dL (14.0-18.0); MEAN CORPUSCULAR HEMOGLOBIN 28.4 pg (28.0-32.0); MEAN CORPUSCULAR VOLUME 84.6 fL (80.0-94.0); MEAN PLATELET VOLUME 8.4 fl (7.4-10.4); PLATELET 318 x1000/uL (130-400); RED BLOOD CELL COUNT 3.77 mill/uL (4.7-6.1); RED CELL DISTRIBUTION WIDTH 14.5 % (11.6-14.6)
[2019-08-19] MEDS: HYDRALAZINE HCL 50MG TABLET PO SCH ×2 (06:03→13:40)
[2019-08-19] MEDS: METHYLPREDNISOLONE SOD SUCC 40 MG/ML VIAL IV SCH ×2 (06:03→13:40)
[2019-08-19] MEDS: BLOOD SUGAR DIAGNOSTIC STRIP TEST SCH ×2 (06:04→12:11)
[2019-08-19 06:15] LABS: CHLORIDE 104 mEq/L (98-107)
[2019-08-19 06:29] LABS: CREATINE KINASE 131 IU/L (39-308); CREATINE KINASE MB FRACTION 2.7 ng/mL (0.5-3.6); LDL CHOLESTEROL 73 mg/dL (5-100)
[2019-08-19 06:30] LABS: HDL CHOLESTEROL 70 mg/dL (40-59); T4 FREE 1.03 ng/dL (0.76-1.46)
[2019-08-19] MEDS ORDERED: METFORMIN HCL 500MG TABLET PO SCH (07:20)
[2019-08-19] MEDS: INSULIN LISPRO 100 UNITS/ML SUBCUT SCH ×2 (07:58→13:43)
[2019-08-19 08:00] VITALS: BP 162/75
[2019-08-19] MEDS: FAMOTIDINE 20MG/2ML VIAL IV SCH (08:03)
[2019-08-19] MEDS ORDERED: FUROSEMIDE 40MG/4ML VIAL IVP SCH (09:00)
[2019-08-19] MEDS ORDERED: APIXABAN 5 MG TABLET PO SCH (09:00)
[2019-08-19] MEDS ORDERED: SPIRONOLACTONE 50MG TABLET PO SCH (09:00)
[2019-08-19] MEDS ORDERED: MULTIVITAMINS,THER W-MINERALS TABLET PO SCH (09:00)
[2019-08-19] MEDS ORDERED: LOSARTAN POTASSIUM 100 MG TABLET PO SCH (09:00)
[2019-08-19] MEDS ORDERED: ASPIRIN 81MG EC TABLET PO SCH ×2 (09:00)
[2019-08-19 10:00] VITALS: BP 167/91
[2019-08-19 10:35] LABS: PLATELET ESTIMATE NORMAL
[2019-08-19 12:00] VITALS: BP 149/56
[2019-08-19 14:00] VITALS: BP 144/71
[2019-08-19] MEDS ORDERED: FUROSEMIDE 40MG/4ML VIAL IVP NR (14:45)
[2019-08-20] MEDS ORDERED: FUROSEMIDE 40MG/4ML VIAL IVP SCH (09:00)
== END 2019-08-19 15:35 | disposition left against medical advice (07) | DRG 816 ==
LOC: ER 01:52 → 3WST 14:13 → ENRESERV 17:29
PROVIDERS: ADMIT Internal Medicine; ATTEND Internal Medicine
PROC: 5A09357 Assistance with Respiratory Ventilation, Less than 24 Consecutive Hours, Continuous Positive Airway Pressure (ICD-10-PCS; principal; 2019-08-18)
DX: T40.5X1A Poisoning by cocaine, accidental (unintentional), initial encounter (principal); J96.20 Acute and chronic respiratory failure, unspecified whether with hypoxia or hypercapnia; J84.9 Interstitial pulmonary disease, unspecified; J18.9 Pneumonia, unspecified organism; I11.0 Hypertensive heart disease with heart failure; E11.51 Type 2 diabetes mellitus with diabetic peripheral angiopathy without gangrene; I50.9 Heart failure, unspecified; E11.65 Type 2 diabetes mellitus with hyperglycemia; I48.0 Paroxysmal atrial fibrillation; F14.90 Cocaine use, unspecified, uncomplicated; D64.9 Anemia, unspecified; Z53.29 Procedure and treatment not carried out because of patient's decision for other reasons; J68.0 Bronchitis and pneumonitis due to chemicals, gases, fumes and vapors; F17.210 Nicotine dependence, cigarettes, uncomplicated; Z91.19 Patient's noncompliance with other medical treatment and regimen; I25.2 Old myocardial infarction; Z88.8 Allergy status to other drugs, medicaments and biological substances; Z79.899 Other long term (current) drug therapy; Z89.421 Acquired absence of other right toe(s); Y92.89 Other specified places as the place of occurrence of the external cause; Z68.33 Body mass index [BMI] 33.0-33.9, adult
CPT/HCPCS: 36415; 36600; 71045; 80061; 80305; 81003; 82375; 82550; 82553; 82805; 82962; 83605; 83880; 84439; 84443; 84484; 87804; 93005; 93306; 93970; 96365; 96366; 97162; 99285; J0360; J1815; J1940; J1956; J2270; J2543; J2920; J3490; J7030; J7040; J7060; J7611; J7620

== ENCOUNTER 2019-09-21 07:30 | Emergency (ER) | payer MEDICARE ==
[~2019-09-21] VITALS: Ht 188 cm; Wt 118.0 kg
[~2019-09-21 07:30] MED LIST changes: -ASPI-1393 PO; +ASPI-1497 PO
[2019-09-21] MEDS ORDERED: MORPHINE SULFATE 4 MG/ML CPJ (NOT FOR IM USE) IV STA (08:21)
[2019-09-21] MEDS ORDERED: ONDANSETRON HCL 4MG/2ML INJ IV STA (08:21)
[2019-09-21 09:05] LABS: BASOPHILS % 2.4 % (0.0-2.0); HEMATOCRIT. 32.7 % (42.0-52.0); HEMOGLOBIN. 10.6 g/dL (14.0-18.0); LYMPHOCYTES % 22.5 % (20.0-50.0); MEAN CORPUSCULAR HEMOGLOBIN 26.7 pg (28.0-32.0); MEAN CORPUSCULAR VOLUME 82.1 fL (80.0-94.0); MEAN PLATELET VOLUME 7.5 fl (7.4-10.4); MONOCYTES % 11.3 % (2.0-8.0); NEUTROPHILS % 56.8 % (40.0-76.0); PLATELET 460 x1000/uL (130-400); RED BLOOD CELL COUNT 3.99 mill/uL (4.7-6.1)
[2019-09-21 09:07] LABS: CHLORIDE 108 mEq/L (98-107)
[2019-09-21] MEDS ORDERED: ASPIRIN 325MG EC TABLET PO ONE ×2 (09:45→10:15)
[2019-09-21] MEDS: HYDROCODONE/ACETAMINOPHEN 5/325MG TABLET PO PRN ×2 (15:12→19:53)
[2019-09-21 20:52] VITALS: BP 168/91
== END 2019-09-21 21:00 | disposition short-term general hospital (02) ==
LOC: ER 07:30 → ENRESERV 19:32 → CANRESERV 19:32 → CANBEDREQ 19:53 → ER 21:00
DX: R07.89 Other chest pain (principal); I11.0 Hypertensive heart disease with heart failure; I50.32 Chronic diastolic (congestive) heart failure; E11.9 Type 2 diabetes mellitus without complications; F17.210 Nicotine dependence, cigarettes, uncomplicated; F19.10 Other psychoactive substance abuse, uncomplicated; Z91.19 Patient's noncompliance with other medical treatment and regimen; Z87.01 Personal history of pneumonia (recurrent); Z71.6 Tobacco abuse counseling
CPT/HCPCS: 36415; 71045; 80053; 82962; 83880; 84484; 85025; 85379; 93005; 96374; 96375; 99285; 99406; J2270; J2405

== ENCOUNTER 2019-09-25 15:32 | Emergency (ER) | payer MEDICARE ==
[~2019-09-25] VITALS: Ht 188 cm; Wt 122.0 kg
[2019-09-25] MEDS ORDERED: MORPHINE SULFATE 4 MG/ML CPJ (NOT FOR IM USE) IV STA (16:44)
[2019-09-25] MEDS ORDERED: SODIUM CHLORIDE 0.9% 1,000 ML IV ONE (16:44)
[2019-09-25] MEDS ORDERED: ONDANSETRON HCL 4MG/2ML INJ IV STA (16:44)
[2019-09-25] MEDS ORDERED: ASPIRIN 81MG TABLET PO ONE (16:45)
[2019-09-25 17:06] LABS: BASOPHILS % 0.5 % (0.0-2.0); EOSINOPHILS % 7.4 % (0.0-5.0); HEMATOCRIT. 35.5 % (42.0-52.0); HEMOGLOBIN. 11.7 g/dL (14.0-18.0); LYMPHOCYTES % 23.9 % (20.0-50.0); MEAN CORPUSCULAR HEMOGLOBIN 26.9 pg (28.0-32.0); MEAN CORPUSCULAR VOLUME 81.4 fL (80.0-94.0); MEAN PLATELET VOLUME 7.8 fl (7.4-10.4); MONOCYTES % 8.6 % (2.0-8.0); NEUTROPHILS % 59.6 % (40.0-76.0); PLATELET 563 x1000/uL (130-400); RED BLOOD CELL COUNT 4.35 mill/uL (4.7-6.1); RED CELL DISTRIBUTION WIDTH 14.8 % (11.6-14.6)
[2019-09-25 17:10] LABS: CHLORIDE 107 mEq/L (98-107)
[2019-09-25 17:13] LABS: D-DIMER 0.52 mg/L FEU (<0.50); ETHANOL BLOOD < 10 mg/dL; PARTIAL THROMBOPLASTIN TIME 27.4 sec (23.4-31.0); PROTHROMBIN TIME 9.9 sec (9.6-11.0)
[2019-09-25 17:25] LABS: *AMPHETAMINES SCREEN URINE NEGATIVE (NEGATIVE); *BARBITURATES SCREEN URINE NEGATIVE (NEGATIVE); *BENZODIAZEPINES SCREEN URINE NEGATIVE (NEGATIVE); *COCAINE SCREEN URINE NEGATIVE (NEGATIVE)
[2019-09-25 17:26] LABS: CANNABINOID URINE SCREEN NEGATIVE (NEGATIVE); METHADONE URINE SCREEN NEGATIVE (NEGATIVE); OPIATES URINE SCREEN NEGATIVE (NEGATIVE); PHENCYCLIDINE URINE SCREEN NEGATIVE (NEGATIVE)
[2019-09-25] MEDS ORDERED: IOHEXOL-350 100 ML BOTTLE ONE (19:08)
[2019-09-25] MEDS: NITROGLYCERIN 0.4MG TABLET SL SL PRN ×2 (21:08→22:41)
[2019-09-25] MEDS ORDERED: MORPHINE SULFATE 4 MG/ML CPJ (NOT FOR IM USE) IV ONE ×3 (22:15)
[2019-09-26 00:52] VITALS: BP 154/80
== END 2019-09-26 00:54 | disposition short-term general hospital (02) ==
LOC: ER 15:32 → CANRESERV 22:01 → ENRESERV 22:01 → CANBEDREQ 22:04 → ER 09-26 00:54
DX: R07.89 Other chest pain (principal); I11.9 Hypertensive heart disease without heart failure; E11.9 Type 2 diabetes mellitus without complications; J44.9 Chronic obstructive pulmonary disease, unspecified; E78.00 Pure hypercholesterolemia, unspecified; F14.10 Cocaine abuse, uncomplicated; F17.210 Nicotine dependence, cigarettes, uncomplicated; Z88.8 Allergy status to other drugs, medicaments and biological substances
CPT/HCPCS: 36415; 71045; 71275; 80053; 80305; 80320; 83880; 84484; 85025; 85379; 85610; 85730; 93005; 93970; 96374; 96375; 96376; 99285; J2270; J2405; J7030; Q9967; Z7610; G0480

== ENCOUNTER 2019-11-24 16:03 | Emergency (ER) | payer MEDICARE ==
[~2019-11-24] VITALS: Ht 157.5 cm; Wt 100.0 kg
[2019-11-24] MEDS ORDERED: SODIUM CHLORIDE 0.9% 1,000 ML IV ONE (16:12)
[2019-11-24] MEDS ORDERED: ONDANSETRON HCL 4MG/2ML INJ IV ONE (16:15)
[2019-11-24 16:38] LABS: BASOPHILS % 1.4 % (0.0-2.0); HEMATOCRIT. 36.7 % (42.0-52.0); HEMOGLOBIN. 12.1 g/dL (14.0-18.0); LYMPHOCYTES % 32.6 % (20.0-50.0); MEAN CORPUSCULAR HEMOGLOBIN 26.4 pg (28.0-32.0); MEAN CORPUSCULAR VOLUME 79.7 fL (80.0-94.0); MEAN PLATELET VOLUME 7.3 fl (7.4-10.4); MONOCYTES % 8.2 % (2.0-8.0); NEUTROPHILS % 51.8 % (40.0-76.0); PLATELET 393 x1000/uL (130-400); RED CELL DISTRIBUTION WIDTH 18.2 % (11.6-14.6)
[2019-11-24 16:40] LABS: CHLORIDE 105 mEq/L (98-107)
[2019-11-24 16:41] LABS: PROTHROMBIN TIME 10.4 sec (9.6-11.0)
[2019-11-24 16:44] LABS: ETHANOL BLOOD 217 mg/dL
[2019-11-24 18:00] VITALS: BP 150/70
[2019-11-24] MEDS ORDERED: HALOPERIDOL LACTATE 5MG/ML VIAL IM ONE (18:42)
[2019-11-24] MEDS ORDERED: ASPIRIN 325MG TABLET PO ONE (18:45)
[2019-11-24] MEDS ORDERED: POTASSIUM CHLORIDE 20MEQ TABLET SR PO ONE (18:45)
== END 2019-11-24 19:15 | disposition home or self-care (01) ==
LOC: ER 16:03
DX: F10.129 Alcohol abuse with intoxication, unspecified (principal); Y90.7 Blood alcohol level of 200-239 mg/100 ml; R79.89 Other specified abnormal findings of blood chemistry; I10 Essential (primary) hypertension; J44.9 Chronic obstructive pulmonary disease, unspecified; E11.9 Type 2 diabetes mellitus without complications; Z98.890 Other specified postprocedural states; Z79.899 Other long term (current) drug therapy; Z88.8 Allergy status to other drugs, medicaments and biological substances
CPT/HCPCS: 36415; 80053; 80320; 83880; 84484; 85025; 85610; 96361; 96374; 99285; J7030; G0480

== ENCOUNTER 2024-05-09 17:29 | Inpatient (IN) | payer MEDICAID ==
[~2024-05-09] VITALS: Ht 188 cm; Wt 109.8 kg
[~2024-05-09 17:29] MED LIST changes: -B25 PO; +CARV12.545 PO; +CHOL2000 PO; +DILT30TA37 MT; -DILT30TA38 MT; -FLUT1DIS3 INH; +GABA800T97 MT; +GLIP5TAB22 MT; +HYDR-4350 PO; +HYDR100T11 MT; -LEVO500T2 MT; +LOSA-415 PO; -LOSA100T3 PO; +MOME13HF12 INH; +MONT-39 MT; +PANT40TA51 PO; -POTA20TA82 PO; +PROT40 MT; +QUET100T34 PO; +SPIR25TA6 PO; +TORS20TA4 MT; -TRAM50TA3 PO
[2024-05-09 17:32] VITALS: O2SAT 100
[2024-05-09] MEDS: ASPIRIN 81MG TABLET PO ONE (18:12)
[2024-05-09] MEDS ORDERED: ACETAMINOPHEN 325MG TABLET PO ONE (18:45)
[2024-05-09 18:48] LABS: BASOPHILS % 0.9 % (0.0-2.0); EOSINOPHILS % 4.8 % (0.0-5.0); HEMATOCRIT. 42.3 % (42.0-52.0); LYMPHOCYTES % 13.8 % (20.0-50.0); MEAN CORPUSCULAR HEMOGLOBIN 27.2 pg (28.0-32.0); MEAN CORPUSCULAR VOLUME 82.3 fL (80.0-94.0); MEAN PLATELET VOLUME 8.2 fl (7.4-10.4); MONOCYTES % 13.8 % (2.0-8.0); NEUTROPHILS % 66.7 % (40.0-76.0); PLATELET 459 x1000/uL (130-400); RED BLOOD CELL COUNT 5.14 mill/uL (4.7-6.1); RED CELL DISTRIBUTION WIDTH 16.9 % (11.6-14.6); WHITE BLOOD COUNT 7.9 x1000/uL (4.5-11.0)
[2024-05-09 18:56] LABS: CHLORIDE 92 mEq/L (98-107); POTASSIUM 3.4 mEq/L (3.5-5.1); SODIUM 125 mEq/L (136-145)
[2024-05-09 18:57] LABS: CALCIUM 9.1 mg/dL (8.7-10.4); CARBON DIOXIDE 24 mEq/L (21-32)
[2024-05-09 19:02] LABS: GLUCOSE 258 mg/dL (70-105); PARTIAL THROMBOPLASTIN TIME 30.9 sec (23.4-31.0); PROTHROMBIN TIME 11.3 sec (9.6-11.0); UREA NITROGEN BLOOD 10 mg/dL (9-23)
[2024-05-09 19:05] LABS: CREATININE 2.1 mg/dL (0.6-1.3); ETHANOL BLOOD < 10 mg/dL (<10); TROPONIN I HIGH SENSITIVITY 115 ng/L (3.0-53)
[2024-05-09] MEDS: SODIUM CHLORIDE 0.9% 250 ML IV ONE (20:35)
[2024-05-09] MEDS: ACETAMINOPHEN 325MG TABLET PO NR (20:45)
[2024-05-09] MEDS ORDERED: GUAIFENESIN 200MG/10ML SUGAR FREE UDC PO PRN (21:45)
[2024-05-09] MEDS ORDERED: NA PHOS,M-B/NA PHOS,DI-BA ENEMA 118ML PR PRN (21:45)
[2024-05-09] MEDS ORDERED: CLONIDINE 0.1MG TABLET PO PRN (21:45)
[2024-05-09] MEDS ORDERED: NITROGLYCERIN 0.4MG TABLET SL SL PRN (21:45)
[2024-05-09] MEDS ORDERED: DEXTROSE 50% WATER 50ML SYRINGE IV PRN (21:45)
[2024-05-09] MEDS ORDERED: IPRATROPIUM/ALBUTEROL 0.5-3(2.5)MG/3ML NEB HHN PRN (21:45)
[2024-05-09] MEDS ORDERED: DOCUSATE SODIUM 100MG CAPSULE PO PRN (21:45)
[2024-05-09] MEDS ORDERED: MAGNESIUM/ALUMINUM HYDROXIDE/SIMETHICONE 30ML UDC PO PRN (21:45)
[2024-05-09] MEDS ORDERED: ACETAMINOPHEN 325MG TABLET PO PRN ×2 (21:45)
[2024-05-09 22:30] VITALS: BP 144/85; PULSE 84; PULSE 85; RESP 18; RESP 20; TEMP 36.89184; TEMP 36.9184; O2SAT 98
[2024-05-09] MEDS: HYDROCODONE/ACETAMINOPHEN 5/325MG TABLET PO PRN (23:41)
[2024-05-10] VITALS: BP 135/57; PULSE 72; RESP 16; TEMP 36.78072; O2SAT 96
[2024-05-10 01:04] LABS: ALANINE AMINOTRANSFERASE 14 IU/L (10-49); ALBUMIN 3.6 g/dL (3.2-4.8); ASPARTATE AMINOTRANSFERASE 24 IU/L (<34); BILIRUBIN DIRECT 0.2 mg/dL (<=3.0); BILIRUBIN TOTAL 0.7 mg/dL (0.1-1.0); PROTEIN TOTAL 6.9 g/dL (6.0-8.3)
[2024-05-10 01:08] LABS: TROPONIN I HIGH SENSITIVITY 89 ng/L (3.0-53)
[2024-05-10 04:00] VITALS: BP 144/82; PULSE 72; RESP 20; TEMP 36.83628; O2SAT 97
[2024-05-10] MEDS ORDERED: NITROGLYCERIN 0.4MG TABLET SL SL PRN (05:30)
[2024-05-10] MEDS: SODIUM CHLORIDE 0.9% 1,000 ML IV SCH (05:54)
[2024-05-10] MEDS ORDERED: NALOXONE HCL 0.4MG/ML VIAL IV PRN (06:00)
[2024-05-10] MEDS: CHLORDIAZEPOXIDE 10MG CAPSULE PO SCH (06:47)
[2024-05-10] MEDS: HYDRALAZINE HCL 100MG TABLET PO SCH (06:47)
[2024-05-10] MEDS: BLOOD SUGAR DIAGNOSTIC STRIP TEST SCH (06:47)
[2024-05-10 06:55] LABS: BASOPHILS % 2.5 % (0.0-2.0); EOSINOPHILS % 9.2 % (0.0-5.0); HEMATOCRIT. 40.3 % (42.0-52.0); HEMOGLOBIN. 13.4 g/dL (14.0-18.0); LYMPHOCYTES % 24.9 % (20.0-50.0); MEAN CORPUSCULAR HEMOGLOBIN 27.3 pg (28.0-32.0); MEAN CORPUSCULAR HGB CONC 33.3 g/dL (31.0-37.0); MEAN PLATELET VOLUME 8.3 fl (7.4-10.4); MONOCYTES % 13.7 % (2.0-8.0); NEUTROPHILS % 49.7 % (40.0-76.0); PLATELET 450 x1000/uL (130-400); RED BLOOD CELL COUNT 4.92 mill/uL (4.7-6.1); RED CELL DISTRIBUTION WIDTH 16.8 % (11.6-14.6); WHITE BLOOD COUNT 6.2 x1000/uL (4.5-11.0)
[2024-05-10 07:09] LABS: POTASSIUM 3.4 mEq/L (3.5-5.1)
[2024-05-10 07:10] LABS: CALCIUM 8.7 mg/dL (8.7-10.4)
[2024-05-10 07:14] LABS: CREATININE 2.1 mg/dL (0.6-1.3)
[2024-05-10 07:16] LABS: T4 FREE 1.42 ng/dL (0.89-1.76); THYROID STIMULATING HORMONE 1.67 uIU/mL (0.55-4.78)
[2024-05-10 07:37] LABS: CREATININE URINE RANDOM 158.1 mg/dL; UREA NITROGEN URINE RANDOM 165 mg/dL
[2024-05-10 07:58] LABS: PHOSPHORUS 4.8 mg/dL (2.5-4.9)
[2024-05-10 08:00] LABS: SODIUM URINE RANDOM < 10 mEq/L
[2024-05-10] MEDS: ONDANSETRON HCL 4MG/2ML INJ IV PRN (08:07)
[2024-05-10] MEDS: ASPIRIN 81MG TABLET PO SCH (08:17)
[2024-05-10 08:20] VITALS: BP 124/54; PULSE 85; RESP 20; TEMP 36.61404; O2SAT 97
[2024-05-10] MEDS: INSULIN LISPRO 100 UNITS/ML SUBCUT SCH (08:28)
[2024-05-10] MEDS: SPIRONOLACTONE 25MG TABLET PO SCH (08:28)
[2024-05-10] MEDS: LOSARTAN 100 MG TABLET PO SCH (08:29)
[2024-05-10] MEDS ORDERED: ASPIRIN 81MG TABLET PO SCH (09:00)
[2024-05-10 10:17] LABS: OSMOLALITY URINE 260 mOsm/kg (500-850)
[2024-05-10 14:50] LABS: *AMPHETAMINES SCREEN URINE PRESUMPTIVE POSITIVE (NEGATIVE)
[2024-05-10 14:51] LABS: *BARBITURATES SCREEN URINE NEGATIVE (NEGATIVE); *BENZODIAZEPINES SCREEN URINE NEGATIVE (NEGATIVE); *COCAINE SCREEN URINE PRESUMPTIVE POSITIVE (NEGATIVE); CANNABINOID URINE SCREEN PRESUMPTIVE POSITIVE (NEGATIVE); ECSTASY MDMA SCREEN URINE NEGATIVE (NEGATIVE); METHADONE URINE SCREEN NEGATIVE (NEGATIVE); OPIATES URINE SCREEN NEGATIVE (NEGATIVE); PHENCYCLIDINE URINE SCREEN NEGATIVE (NEGATIVE)
[2024-05-10] MEDS ORDERED: FAMOTIDINE 20MG TABLET PO SCH (21:00)
== END 2024-05-10 08:51 | disposition left against medical advice (07) | DRG 812 ==
LOC: ER 17:29 → 3WST 19:52 → EDBEDREQTM 20:05 → EDBEDREQ 20:05
PROVIDERS: ADMIT Internal Medicine; ATTEND Internal Medicine
DX: T43.651A Poisoning by methamphetamines accidental (unintentional), initial encounter (principal); N17.0 Acute kidney failure with tubular necrosis; I50.22 Chronic systolic (congestive) heart failure; I13.0 Hypertensive heart and chronic kidney disease with heart failure and stage 1 through stage 4 chronic kidney disease, or unspecified chronic kidney disease; I25.10 Atherosclerotic heart disease of native coronary artery without angina pectoris; E87.1 Hypo-osmolality and hyponatremia; Z99.81 Dependence on supplemental oxygen; E87.6 Hypokalemia; J44.89 Other specified chronic obstructive pulmonary disease; Z53.29 Procedure and treatment not carried out because of patient's decision for other reasons; E11.65 Type 2 diabetes mellitus with hyperglycemia; N18.9 Chronic kidney disease, unspecified; F15.90 Other stimulant use, unspecified, uncomplicated; F14.90 Cocaine use, unspecified, uncomplicated; Z88.8 Allergy status to other drugs, medicaments and biological substances; Z79.899 Other long term (current) drug therapy; Z79.84 Long term (current) use of oral hypoglycemic drugs; Z79.51 Long term (current) use of inhaled steroids; Z79.01 Long term (current) use of anticoagulants; Z79.82 Long term (current) use of aspirin; Z79.02 Long term (current) use of antithrombotics/antiplatelets; T40.5X3A Poisoning by cocaine, assault, initial encounter; R07.89 Other chest pain
CPT/HCPCS: 36415; 71045; 80048; 80076; 80305; 80320; 82570; 82962; 83036; 83605; 83735; 83880; 83930; 83935; 84100; 84145; 84300; 84439; 84443; 84484; 84540; 85025; 85379; 93005; 99291; J1815; J2405; J7050; G0480

== ENCOUNTER 2024-07-02 16:29 | Emergency (ER) | payer MEDICAID ==
[~2024-07-02] VITALS: Ht 185.4 cm; Wt 125.0 kg
[2024-07-02 16:31] VITALS: O2SAT 98
[2024-07-02] MEDS: ASPIRIN 81MG TABLET PO ONE (17:00)
[2024-07-02 17:04] LABS: BASOPHILS % 1.2 % (0.0-2.0); EOSINOPHILS % 9.1 % (0.0-5.0); HEMATOCRIT. 35.7 % (42.0-52.0); HEMOGLOBIN. 11.3 g/dL (14.0-18.0); LYMPHOCYTES % 33.7 % (20.0-50.0); MEAN CORPUSCULAR HEMOGLOBIN 26.3 pg (28.0-32.0); MEAN CORPUSCULAR HGB CONC 31.8 g/dL (31.0-37.0); MEAN CORPUSCULAR VOLUME 82.9 fL (80.0-94.0); MEAN PLATELET VOLUME 7.5 fl (7.4-10.4); MONOCYTES % 12.5 % (2.0-8.0); NEUTROPHILS % 43.5 % (40.0-76.0); PLATELET 444 x1000/uL (130-400); RED CELL DISTRIBUTION WIDTH 16.1 % (11.6-14.6); WHITE BLOOD COUNT 5.2 x1000/uL (4.5-11.0)
[2024-07-02 17:09] LABS: CHLORIDE 101 mEq/L (98-107); POTASSIUM 3.7 mEq/L (3.5-5.1); SODIUM 132 mEq/L (136-145)
[2024-07-02 17:10] LABS: CALCIUM 8.6 mg/dL (8.7-10.4); CARBON DIOXIDE 22 mEq/L (21-32)
[2024-07-02 17:15] LABS: GLUCOSE 157 mg/dL (70-105); UREA NITROGEN BLOOD 7 mg/dL (9-23)
[2024-07-02 17:19] LABS: TROPONIN I HIGH SENSITIVITY 66 ng/L (3.0-53)
[2024-07-02] MEDS: IBUPROFEN 600MG TABLET PO ONE (18:24)
[2024-07-02 18:26] VITALS: BP 163/87; PULSE 113; RESP 22; TEMP 36.78072; O2SAT 97
== END 2024-07-02 19:45 | disposition left against medical advice (07) ==
LOC: ER 16:29 → EDBEDREQ 18:14 → ER 19:45
DX: R07.89 Other chest pain (principal); M79.89 Other specified soft tissue disorders; F15.10 Other stimulant abuse, uncomplicated; I11.0 Hypertensive heart disease with heart failure; I50.9 Heart failure, unspecified; E11.9 Type 2 diabetes mellitus without complications; J45.909 Unspecified asthma, uncomplicated; I48.91 Unspecified atrial fibrillation; Z79.899 Other long term (current) drug therapy; Z88.8 Allergy status to other drugs, medicaments and biological substances
CPT/HCPCS: 80048; 85025; 85379; 84484; 36415; 93971; 71045; 93005; 99291; Z7610 ×3

== ENCOUNTER 2024-09-17 11:16 | Emergency (ER) | payer MEDICAID ==
[~2024-09-17] VITALS: Ht 177.8 cm; Wt 115.0 kg
[2024-09-17 11:19] VITALS: O2SAT 96
[2024-09-17] MEDS: ASPIRIN 81MG TABLET PO ONE (11:55)
[2024-09-17] MEDS: NITROGLYCERIN 0.4MG TABLET SL SL ONE (12:01)
[2024-09-17 12:02] VITALS: TEMP 36.61404
[2024-09-17 12:02] LABS: BASOPHILS % 3.4 % (0.0-2.0); DIFFERENTIAL COMMENT 0; EOSINOPHILS % 7.2 % (0.0-5.0); HEMATOCRIT. 33.6 % (42.0-52.0); HEMOGLOBIN. 10.4 g/dL (14.0-18.0); LYMPHOCYTES % 25.1 % (20.0-50.0); MEAN CORPUSCULAR HEMOGLOBIN 23.5 pg (28.0-32.0); MEAN CORPUSCULAR VOLUME 75.8 fL (80.0-94.0); MEAN PLATELET VOLUME 7.4 fl (7.4-10.4); MONOCYTES % 11.3 % (2.0-8.0); PLATELET 387 x1000/uL (130-400); RED BLOOD CELL COUNT 4.44 mill/uL (4.7-6.1); RED CELL DISTRIBUTION WIDTH 20.1 % (11.6-14.6)
[2024-09-17] MEDS: FUROSEMIDE 40MG/4ML VIAL IV ONE (12:20)
[2024-09-17] MEDS: DILTIAZEM HCL 5MG/ML 5ML VIAL IV ONE (12:20)
[2024-09-17] MEDS: MORPHINE SULFATE 4 MG/ML INJ (FOR IV/IM USE) IV ONE (12:21)
[2024-09-17 12:29] LABS: INR 1.1; PARTIAL THROMBOPLASTIN TIME 28.7 sec (23.4-31.0); PROTHROMBIN TIME 11.7 sec (9.6-11.0)
[2024-09-17 13:08] LABS: CARBON DIOXIDE 23 mEq/L (21-32)
[2024-09-17 13:09] LABS: CALCIUM 8.7 mg/dL (8.7-10.4)
[2024-09-17 13:13] LABS: CREATININE 0.9 mg/dL (0.6-1.3)
[2024-09-17 13:14] LABS: ETHANOL BLOOD 229 mg/dL (<10); UREA NITROGEN BLOOD 7 mg/dL (9-23)
[2024-09-17 13:46] LABS: CHLORIDE 97 mEq/L (98-107); POTASSIUM 3.5 mEq/L (3.5-5.1); SODIUM 133 mEq/L (136-145)
[2024-09-17 13:47] LABS: BG BASE EXCESS -2.4 mmol/L (-2.0-3.0); BG CARBOXYHEMOGLOBIN 2.5 % (0.5-1.5); BG DEOXYHEMOGLOBIN 4.9 % (0.0-5.0); BG FRACTION INSPIRED OXYGEN 32; BG HCO3 ACT 22.8 mmol/L (21.0-28.0); BG OXYHEMOGLOBIN 92.6 % (94.0-98.0); BG PCO2 40.6 mmHg (35.0-48.0); BG PH 7.367 (7.350-7.450); BG PO2 83.1 mmHg (83.0-108.0); BG SAMPLE SITE LEFT RADIAL; BG TOTAL HEMOGLOBIN 13.6 g/dL (13.5-17.5); BG VENT MODE NASAL CANNULA
[2024-09-17 14:53] LABS: GLUCOSE 201 mg/dL (70-105)
[2024-09-17 14:54] LABS: TROPONIN I HIGH SENSITIVITY 71 ng/L (3.0-53)
[2024-09-17 16:41] VITALS: BP 186/117; PULSE 115; RESP 20; O2SAT 95
[2024-09-21] MEDS ORDERED: ESCI5TAB16 (08:51)
[2024-09-21] MEDS ORDERED: MULT-11 PO (08:51)
== END 2024-09-17 16:48 | disposition left against medical advice (07) ==
LOC: ER 11:16 → EDBEDREQ 15:24 → ER 16:48
DX: J96.01 Acute respiratory failure with hypoxia (principal); I50.23 Acute on chronic systolic (congestive) heart failure; R07.9 Chest pain, unspecified; I48.20 Chronic atrial fibrillation, unspecified; I21.4 Non-ST elevation (NSTEMI) myocardial infarction; F10.129 Alcohol abuse with intoxication, unspecified; E78.00 Pure hypercholesterolemia, unspecified; F14.10 Cocaine abuse, uncomplicated; I48.91 Unspecified atrial fibrillation; I11.0 Hypertensive heart disease with heart failure; E11.9 Type 2 diabetes mellitus without complications; I50.9 Heart failure, unspecified; Z79.899 Other long term (current) drug therapy; Z88.8 Allergy status to other drugs, medicaments and biological substances; Z79.84 Long term (current) use of oral hypoglycemic drugs; Z79.51 Long term (current) use of inhaled steroids; J44.89 Other specified chronic obstructive pulmonary disease; Z79.01 Long term (current) use of anticoagulants; Z79.4 Long term (current) use of insulin; Y90.9 Presence of alcohol in blood, level not specified
CPT/HCPCS: 80048; 80320; 83880; 83690; 83735; 85025; 85610; 85730; 84484; 36415; 71045; 82805; 82375; 93005; 96374; 96375; 99291; 36600; Z7610 ×2; J3490; J1940; J2270; G0480